=== PATIENT | female | born 1955 | race Two or more races ===

== ENCOUNTER 2016-07-04 22:09 | Emergency (ER) | payer MEDICARE, OTHER ==
[~2016-07-04] VITALS: Ht 167.6 cm; Wt 73.5 kg
[2016-07-05 01:00] VITALS: BP 131/71
[2016-07-05] MEDS ORDERED: Ketorolac 30mg Inj IM ONE (01:00)
[2016-07-05] MEDS ORDERED: PERCOCET 10-321 EACH ORAL (01:05)
[2016-07-05 01:25] VITALS: BP 131/71
--- NOTE | 2016-07-05 02:40 | Emergency Room Report ---
History of Present Illness General Chief Complaint: Pain Source: Patient Present Illness HPI 60-year-old female presents ED complaining of left knee pain. States she had left knee replacement a few years ago. States that when she will up yesterday she felt pain in her left knee. Denies any injuries. Pain is throbbing, 8/10, nonradiating. Worse with walking. No other aggravating relieving factors. Denies any other associated symptoms Allergies: Coded Allergies: No Known Allergies (Unverified , 07/04/16) Patient History Past Medical History: HTN Past Surgical History: other - Left knee replacement Pertinent Family History: none Social History: Denies: alcohol use, drug use, smoking Now: No Immunizations: UTD Reviewed Nursing Documentation: PMH: Agreed, PSxH: Agreed Nursing Documentation-PMH Past Medical History: No History, Except For Hx Hypertension: Yes Review of Systems All Other Systems: negative except mentioned in HPI Physical Exam Vital Signs Date Time Temp Pulse Resp B/P Pulse Ox O2 Delivery O2 Flow Rate FiO2 07/04/16 22:30 98.1 96 15 129/68 98 Room Air Sp02 EP Interpretation: reviewed, normal General Appearance: no apparent distress, alert, GCS 15, non-toxic Head: normocephalic Eyes: bilateral eye PERRL, bilateral eye normal inspection ENT: normal ENT inspection, hearing grossly normal Neck: normal inspection Respiratory: normal inspection Cardiovascular #1: normal inspection Gastrointestinal: normal inspection Rectal: deferred Genitourinary: no CVA tenderness Musculoskeletal: other - L knee pain/swelling Neurologic: alert, oriented x3, responsive, motor strength/tone normal, sensory intact, speech normal Psychiatric: normal inspection Skin: normal inspection Lymphatic: normal inspection Procedures Splinting Splinting : Pre-Made Type: DANIEL wrap - L knee Medical Decision Making Diagnostic Impression: Primary Impression: Chronic pain of left knee ER Course Hospital Course 60-year-old female presents to ED complaining of left knee pain. No trauma. History of knee replacement Differential diagnoses include: Fracture, dislocation, sprain, contusion Clinical course Patient placed on stretcher. After initial history and physical, I ordered pain medications and Xrays of left knee Xrays prelim read shows no acute fracture/dislocation. Hardware in place. Osteophytes noted. Placed in daniel wrap Patient states she ran out of her pain medications prescribed by her PMD. I reviewed CURES patient has not had any prescriptions refilled recently Diagnosis - chronic pain of left knee Stable and discharged to home with prescription for Percocet. apply ice, keep elevated. weight bear as tolerated. Followup with PMD. Return to ED if symptoms recur or worsen Other X-Ray Diagnostic Results Other X-Ray Diagnostic Results : X-Ray Ordered: L knee EP Interpretation: Yes Findings: no fractures, no dislocation, no soft tissue swelling, other - hardware in place. osteophytes Number of Views: 3 Last Vital Signs Date Time Temp Pulse Resp B/P Pulse Ox O2 Delivery O2 Flow Rate FiO2 07/05/16 01:25 98.1 83 15 131/71 98 Room Air Status: improved Disposition: HOME, SELF-CARE Condition: Stable Scripts Oxycodone Hcl/Acetaminophen 10-325 Mg Tablet (PERCOCET 10-325 MG TABLET*) 1 Each Tablet 1 TAB ORAL Q6H Y for For Pain, #10 TAB 0 Refills Prov: JAKE DELGADO M.D. 07/05/16 Patient Instructions: Knee Pain, [id number] JAKE DELGADO M.D. Jul 05, 2016 02:40
--- NOTE | 2016-07-05 10:53 | Diagnostic Imaging Report ---
Indication: Pain 3 views of the left knee were obtained. Findings: Cemented total knee arthroplasty demonstrated. Hardware alignment and position appear unremarkable. There is no fracture. There is a probable joint effusion. Bones appears osteopenic. Impression: Joint effusion
== END 2016-07-05 01:25 | disposition home or self-care (01) ==
LOC: EMR 23:00
DX: G89.29 Other chronic pain (principal); M25.562 Pain in left knee; I10 Essential (primary) hypertension; Z96.652 Presence of left artificial knee joint
CPT/HCPCS: 73562; 96372; 99283; J1885